=== PATIENT | female | born 1985 | race American Indian/Alaskan Native ===

== ENCOUNTER 2017-01-08 09:23 | Emergency (ER) | payer MEDICAID ==
[2017-01-08 09:55] LABS: Basophils % (Auto) 0.3 % (0.0-1.8); Eosinophils % (Auto) 2.8 % (0.0-4.3); Hematocrit 45.1 % (30.3-42.9); Hemoglobin 14.7 gm/dl (10.1-14.3); Mean Corpuscular HGB Conc 33 % (30-34); Mean Corpuscular Hemoglobin 28 pg (28-32); Mean Corpuscular Volume 87 fl (79-97); Platelet Count 244 K/mm3 (140-440); Red Blood Count 5.16 M/mm3 (3.65-5.03)
[2017-01-08 10:25] LABS: Alanine Aminotransferase 12 units/L (7-56); Albumin 4.7 g/dL (3.9-5); Albumin/Globulin Ratio 1.3 %; Alkaline Phosphatase 65 units/L (35-129); Anion Gap 15 mmol/L; BUN/Creatinine Ratio 8.75; Bilirubin,Total 0.5 mg/dL (0.1-1.2); Blood Urea Nitrogen 7 mg/dL (7-17); Calcium 8.9 mg/dL (8.4-10.2); Carbon Dioxide 25 mmol/L (22-30); Chloride 101.5 mmol/L (98-107); Glucose 87 mg/dL (65-100); Lipase 26 units/L (13-60); Potassium 3.8 mmol/L (3.6-5.0); Sodium 138 mmol/L (137-145); Total Protein 8.2 g/dL (6.3-8.2)
[2017-01-08 11:58] LABS: Bacteria,Urine 1+ /HPF (Negative); Bilirubin,Urine NEG (Negative); Blood,Urine NEG (Negative); Ketones,Urine TR mg/dL (Negative); Leukocyte Esterase,Urine MOD (Negative); Mucus,Urine 3+ /HPF; Nitrite,Urine NEG (Negative); Urobilinogen,Urine < 2.0 mg/dL (<2.0)
[2017-01-08 13:00] VITALS: BP 124/86
--- NOTE | 2017-01-08 13:33 | Emergency Department Report ---
HPI - General Chief Complaint: Abdominal Pain Time Seen by Provider: 01/08/17 12:45 - HPI HPI: This is a 31-year-old Afro-[place]ovenian female presents to the emergency department with the complaint of a 2 day history of left-sided abdominal pain with nausea, vomiting and diarrhea. She says this is an acute on chronic condition as it is been going on intermittently for the past 2 months. When asked why the patient is here, she says "I'm here for an ultrasound of my gallbladder." She says she has a history of gallstones and that "last year they wanted to do surgery to take it out but I had to go to work." She said that she followed up after that time and they "stones had resolved." She is not taken anything for symptoms prior to presentation. She denies any other past medical history. No recent travel or sick contacts at home. ED Past Medical Hx - Past Medical History Previous Medical History?: Yes Hx Hypertension: No Hx Congestive Heart Failure: No Hx Diabetes: No Hx Deep Vein Thrombosis: No Hx Renal Disease: No Hx Sickle Cell Disease: No Hx Seizures: No Hx Asthma: Yes (as child, "grew out of it") Hx COPD: No Hx HIV: No - Surgical History Past Surgical History?: Yes Additional Surgical History: Tonsillectomy - Social History Smoking Status: Never Smoker Substance Use Type: Alcohol, Non Opiate Pain - Medications Home Medications: Home Medications Medication Instructions Recorded Confirmed Last Taken Type HYDROcodone/APAP 5-325 [[place] 1 each PO Q6HR PRN #12 tablet 01/08/17 Unknown Rx 5/325] ED Review of Systems ROS: Stated complaint: N/V/ABD PAIN/DIARRHEA Other details as noted in HPI Comment: All other systems reviewed and negative Constitutional: denies: chills, fever Eyes: denies: eye pain, eye discharge, vision change ENT: denies: ear pain, throat pain Respiratory: denies: cough, shortness of breath, wheezing Cardiovascular: denies: chest pain, palpitations Gastrointestinal: abdominal pain, nausea, vomiting, diarrhea Genitourinary: denies: urgency, dysuria, discharge Musculoskeletal: denies: back pain, joint swelling, arthralgia Skin: denies: rash, lesions Neurological: denies: headache, weakness, paresthesias Physical Exam - Physical Exam Vital Signs: Vital Signs 01/08/17 01/08/17 09:27 12:59 Temperature 98.4 F 98.3 F Pulse Rate 72 84 Respiratory 18 16 Rate Blood Pressure 121/90 Blood Pressure 124/86 [Left] O2 Sat by Pulse 100 100 Oximetry Physical Exam: GENERAL: The patient is well-developed well-nourished. HEENT: Normocephalic. Atraumatic. Extraocular motions are intact. Patient has moist mucous membranes. Pupils equal reactive to light bilaterally. NECK: Supple. Trachea is midline. CHEST/LUNGS: Clear to auscultation. There is no respiratory distress noted. HEART/CARDIOVASCULAR: Regular. There is no tachycardia. There is no gallop rub or murmur. ABDOMEN: Abdomen is soft. There is some epigastric and left upper quadrant tenderness to palpation. No guarding rebound tenderness. No peritoneal signs. Patient has normal bowel sounds. There is no abdominal distention. SKIN: There is no rash. There is no edema. There is no diaphoresis. NEURO: The patient is awake, alert, and oriented. The patient is cooperative. The patient has no focal neurologic deficits. The patient has normal speech. Normal gait. MUSCULOSKELETAL: There is no tenderness or deformity. There is no limitation range of motion. There is no evidence of acute injury. ED Course Vital Signs 01/08/17 01/08/17 09:27 12:59 Temperature 98.4 F 98.3 F Pulse Rate 72 84 Respiratory 18 16 Rate Blood Pressure 121/90 Blood Pressure 124/86 [Left] O2 Sat by Pulse 100 100 Oximetry ED Medical Decision Making - Lab Data Result diagrams: 01/08/17 09:42 01/08/17 09:42 - Radiology Data Radiology results: report reviewed Abdominal x-ray was read by radiology as multiple air-fluid levels consistent with gastroenteritis or mild diffuse ileus but no acute abdominal process. Right upper quadrant abdominal ultrasound shows multiple gallstones but normal gallbladder wall and common bile duct size. - Medical Decision Making 31-year-old female presents to the emergency department with complaint of some left upper quadrant abdominal pain with nausea, vomiting and diarrhea and concern for her gallbladder with previous history of gallstones. Patient's labs and unremarkable including normal lipase, LFTs and bilirubin. There is no leukocytosis, electrolyte abnormalities or renal sufficiency. Patient had a abdominal ultrasound that shows some air-fluid levels and nonspecific bowel gas and was read by radiology as gastroenteritis versus a mild diffuse ileus but no acute intra-abdominal process. Right upper quadrant abdominal ultrasound shows multiple gallstones but no signs of cholecystitis as there is no abdominal wall thickening or enlargement of the common bile duct. - Differential Diagnosis cholelithiasis, cholecystitis, pancreatitis, hepatitis, gastroenteritis Critical Care Time: No Critical care attestation.: If time is entered above; I have spent that time in minutes in the direct care of this critically ill patient, excluding procedure time. ED Disposition Clinical Impression: Nausea and vomiting Qualifiers: Vomiting type: unspecified Vomiting Intractability: non-intractable Qualified Code(s): R11.2 - Nausea with vomiting, unspecified Cholelithiasis Qualifiers: Cholelithiasis location: gallbladder Cholecystitis presence: without cholecystitis Abdominal pain Qualifiers: Abdominal location: left upper quadrant Qualified Code(s): R10.12 - Left upper quadrant pain Disposition: DISCHARGED TO HOME OR SELFCARE Is pt being admited?: No Condition: Stable Instructions: Abdominal Pain (ED), Biliary Colic (ED), Acute Nausea and Vomiting (ED) Additional Instructions: Please follow-up with a primary care doctor in the next few days. I am also going to give you a referral for a surgeon to follow up regarding your gallbladder stones and recurrent pains in case you would like to look into an elective outpatient surgery to remove her gallbladder. Return to the emergency department with any worsening of your symptoms or any acute distress.You've been prescribed a medication that is sedating. Therefore this medication cannot be mixed with alcohol, or taken prior to driving, working, or being responsible for children. Prescriptions: HYDROcodone/APAP 5-325 [[place] 5/325] 1 each PO Q6HR PRN #12 tablet PRN Reason: Pain Referrals: PRIMARY MD PAULINE [Primary Care Provider] - 3-5 Days BEN MEANS MD [Staff Physician] - 3-5 Days Time of Disposition: 14:20
--- NOTE | 2017-01-08 13:37 | XRay Report ---
ABDOMEN, 2 VIEWS: History: Abdominal pain. Findings: Multiple small air-fluid levels are identified throughout the abdomen. No dilated bowel or free air is identified. No pathologic calcifications. Normal stool in the colon. The lung bases are clear. Impression: 1. Findings consistent with gastroenteritis or a mild diffuse ileus. No acute abdominal findings.
--- NOTE | 2017-01-08 14:02 | Ultrasound Report ---
Ultrasound of the right upper quadrant. Findings: The abdominal aorta and liver are normal. There are multiple gallstones. The wall of the gallbladder is not thickened. Common bile duct is normal in caliber at 3 mm. The right kidney is normal in size and configuration with no evidence of hydronephrosis. The head and proximal body of the pancreas appear normal; the tail of the pancreas is not well-visualized. Impression: Multiple gallstones.
== END 2017-01-08 14:38 | disposition home or self-care (01) ==
LOC: ED 09:23
DX: K80.20 Calculus of gallbladder without cholecystitis without obstruction (principal); R11.2 Nausea with vomiting, unspecified; R10.12 Left upper quadrant pain; J45.909 Unspecified asthma, uncomplicated
CPT/HCPCS: 36415; 74020; 76705; 80053; 81001; 81025; 83690; 85025

== ENCOUNTER 2018-05-04 16:19 | Inpatient (IN) | payer MEDICAID, OTHER ==
[2018-05-04] MEDS ORDERED: LACTATED RINGERS 1,000 ML ONE (17:06)
[2018-05-04] MEDS ORDERED: ePHEDrine SULFATE IV PRN ×2 (17:18→20:47)
[2018-05-04] MEDS ORDERED: NARCAN 0.4 MG/1 ML IV PRN ×3 (17:18→23:51)
[2018-05-04] MEDS ORDERED: BRETHINE SUB-Q PRN (17:18)
[2018-05-04] MEDS ORDERED: XYLOCAINE 2% INFILTRATI ONE (17:18)
[2018-05-04] MEDS ORDERED: MINERAL OIL PO PRN (17:18)
[2018-05-04] MEDS ORDERED: BRETHINE IVP PRN (17:18)
[2018-05-04] MEDS ORDERED: STADOL IV PRN (17:18)
[2018-05-04 17:38] LABS: Hematocrit 38.9 % (30.3-42.9); Hemoglobin 13.1 gm/dl (10.1-14.3); Mean Corpuscular HGB Conc 34 % (30-34); Mean Corpuscular Hemoglobin 29 pg (28-32); Mean Corpuscular Volume 87 fl (79-97); Platelet Count 194 K/mm3 (140-440); Red Blood Count 4.48 M/mm3 (3.65-5.03); Red Cell Distribution Width 13.8 % (13.2-15.2)
[2018-05-04] MEDS ORDERED: PITOCin/NS 20 UNIT/1000ML DRIP 20 UNITS/1,000 ML BAG IV SCH ×3 (18:00→23:45)
[2018-05-04] MEDS ORDERED: PITOCin/NS 30 UNIT/500ML 30 UNITS/500 ML BAG IV SCH (18:00)
[2018-05-04] MEDS ORDERED: LACTATED RINGERS 1,000 ML IV SCH ×2 (18:00→23:00)
--- NOTE | 2018-05-04 18:31 | History and Physical Report ---
History of Present Illness Date of examination: 05/04/18 Date of admission: 05/04/18 17:13 Chief complaint: Intense Labor Pains History of present illness: Limited care at [facility], treated for +Trichomonas. 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948 kg Method of Delivery: Vaginal Gestational age at delivery: 39 Medications and Allergies Allergies Allergy/AdvReac Type Severity Reaction Status Date / Time No Known Allergies Allergy Verified 07/12/15 03:10 Home Medications Medication Instructions Recorded Confirmed Last Taken Type HYDROcodone/APAP 5-325 [[place] 1 each PO Q6HR PRN #12 tablet 01/08/17 Unknown Rx 5/325] Ondansetron [Zofran Odt] 4 mg PO Q8H PRN #10 tab.rapdis 01/08/17 Unknown Rx Active Meds: Active Medications Butorphanol Tartrate (Stadol) 2 mg IV Q2H PRN PRN Reason: Pain , Severe (7-10) Last Admin: 05/04/18 17:45 Dose: 2 mg Ephedrine Sulfate (Ephedrine Sulfate) 10 mg IV Q2M PRN PRN Reason: Hypotension Lactated Ringer's (Lactated Ringers) 1,000 mls @ 125 mls/hr IV DIRECT NANCY Last Admin: 05/04/18 17:45 Dose: 999 mls/hr Oxytocin/Sodium Chloride (Pitocin/Ns 20 Unit/1000ml Drip) 20 units in 1,000 mls @ 125 mls/hr IV DIRECT NANCY Oxytocin/Sodium Chloride (Pitocin/Ns 30 Unit/500ml) 30 units in 500 mls @ 2 mls /hr IV TITR NANCY; Protocol Mineral Oil (Mineral Oil) 30 ml PO QHS PRN PRN Reason: Constipation Naloxone HCl (Narcan 0.4 Mg/1 Ml) 0.1 mg IV Q2MIN PRN PRN Reason: Res Rate </= 8 or 02 SAT < 92% Terbutaline Sulfate (Brethine) 0.25 mg SUB-Q ONCE PRN PRN Reason: Hyperstimulation/Hypertonicity Terbutaline Sulfate (Brethine) 0.25 mg IVP ONCE PRN PRN Reason: Hyperstimulation/Hypertonicity Review of Systems All systems: negative - Vital Signs Vital signs: Vital Signs Pulse BP Pulse Ox 74 132/89 99 05/04/18 16:46 05/04/18 16:46 05/04/18 16:46 Temp Pulse Resp BP Pulse Ox 68 20 121/78 100 05/04/18 18:08 05/04/18 17:45 05/04/18 18:08 05/04/18 16:51 - Physical Exam Breasts: Positive: normal Cardiovascular: Regular rate Lungs: Positive: Clear to auscultation, Normal air movement Abdomen: Positive: normal appearance, soft, normal bowel sounds Genitourinary (Female): Positive: normal external genitalia, normal perenium Vagina: Positive: normal moisture Uterus: Positive: normal size Anus/Rectum: Positive: normal perianal skin - Obstetrical FHR: category 1 Uterine Contraction Monitor Mode: External Cervical Dilatation: 7 (AROM of a large amount of clear fluid @ 1515) Cervical Effacement Percentage: 80 station: -2 Uterine Contraction Pattern: Regular Uterine Tone Measurement Phase: Resting Uterine Contraction Intensity: Moderate Results Result Diagrams: 05/04/18 17:00 All other labs normal. Assessment and Plan A: IUP @ 38 5/7 Weeks Category I Tracing Previous Active Labor GBS Unknown limited Care P: Admit to L&D per Routine Orders AROm Dr. Olmedo [address] [place] [address]) aware the in active labor GBS Prophylaxis
[2018-05-04] MEDS ORDERED: POLYCILLIN/NS 2 GM/100 ML 2 GM/100 ML BAG IV ONE (18:35)
[2018-05-04] MEDS ORDERED: NEO SYNEPHRINE/NS Syringe(OR USE) IV ONE (20:37)
[2018-05-04] MEDS ORDERED: NARCAN 2 MG/2 ML IV PRN (20:47)
--- NOTE | 2018-05-04 20:49 | Anesthesia Consultation ---
Anesthesia Consult and Med Hx Date of service: 05/04/18 - Airway Anesthetic Teeth Evaluation: Good ROM Head & Neck: Adequate Mental/Hyoid Distance: Adequate Mallampati Class: Class II Intubation Access Assessment: Probably Good - Pulmonary Exam CTA: Yes - Cardiac Exam Cardiac Exam: RRR - Pre-Operative Health Status ASA Pre-Surgery Classification: ASA2 Proposed Anesthetic Plan: Epidural, Spinal - Pulmonary Hx Smoking: No Hx Asthma: No COPD: No Hx Pneumonia: No - Cardiovascular System Hx Hypertension: No - Central Nervous System Hx Seizures: No Hx Psychiatric Problems: No - Endocrine Hx Renal Disease: No Hx End Stage Renal Disease: No Hx Hypothyroidism: No Hx Hyperthyroidism: No - Hematic Hx Anemia: No Hx Sickle Cell Disease: No - Other Systems Hx Alcohol Use: No
--- NOTE | 2018-05-04 20:56 | Progress Note ---
Assessment and Plan A: IUP @ 38 5/7 Weeks Category I Tracing Previous Protracted Labor GBS Unknown limited Care P: Internals x 2 placed Pitocin Augmentation Multiple Maternal Position Changes GBS Prophylaxis Transfer of Care to Dr. Olmedo due to protracted labor in attempt Subjective - Subjective Date of service: 05/04/18 Interval history: Limited care at [facility], treated for +Trichomonas. Patient reports: movement normal, contractions (Resting well under epidural) Objective - Vital Signs Vital Signs: Vital Signs - 12hr 05/04/18 05/04/18 05/04/18 16:46 16:51 17:45 Temperature Pulse Rate 80 80 Respiratory 20 Rate Blood Pressure 132/89 O2 Sat by Pulse 99 100 Oximetry 05/04/18 05/04/18 05/04/18 18:08 18:39 18:59 Temperature 98.4 F Pulse Rate 68 73 Respiratory 20 Rate Blood Pressure 121/78 140/82 O2 Sat by Pulse Oximetry 05/04/18 05/04/18 05/04/18 19:30 19:39 19:46 Temperature Pulse Rate 73 75 75 Respiratory Rate Blood Pressure 163/92 166/91 O2 Sat by Pulse 99 Oximetry 05/04/18 05/04/18 05/04/18 19:49 19:56 19:58 Temperature Pulse Rate 81 78 80 Respiratory Rate Blood Pressure 135/101 O2 Sat by Pulse 92 99 Oximetry 05/04/18 05/04/18 05/04/18 20:00 20:02 20:03 Temperature Pulse Rate 67 71 66 Respiratory Rate Blood Pressure 142/64 152/68 O2 Sat by Pulse 94 Oximetry 05/04/18 05/04/18 05/04/18 20:04 20:06 20:08 Temperature Pulse Rate 73 64 68 Respiratory Rate Blood Pressure 133/78 119/64 119/74 O2 Sat by Pulse 90 Oximetry 05/04/18 05/04/18 05/04/18 20:10 20:12 20:14 Temperature Pulse Rate 72 69 101 H Respiratory Rate Blood Pressure 120/79 118/75 122/92 O2 Sat by Pulse 100 Oximetry 05/04/18 05/04/18 05/04/18 20:16 20:17 20:26 Temperature Pulse Rate 95 H 86 69 Respiratory Rate Blood Pressure 140/58 97/52 O2 Sat by Pulse 83 L 98 Oximetry 05/04/18 05/04/18 05/04/18 20:28 20:30 20:32 Temperature Pulse Rate 76 73 68 Respiratory Rate Blood Pressure 97/54 96/60 90/57 O2 Sat by Pulse Oximetry 05/04/18 05/04/18 05/04/18 20:34 20:36 20:38 Temperature Pulse Rate 70 70 73 Respiratory Rate Blood Pressure 88/51 92/51 77/39 O2 Sat by Pulse Oximetry 05/04/18 05/04/18 05/04/18 20:42 20:48 20:49 Temperature Pulse Rate 84 50 L 86 Respiratory Rate Blood Pressure O2 Sat by Pulse 99 92 99 Oximetry 05/04/18 20:54 Temperature Pulse Rate 117 H Respiratory Rate Blood Pressure 185/113 O2 Sat by Pulse 100 Oximetry - Exam Breasts: normal Cardiovascular: Regular rate Abdomen: Present: normal appearance, normal bowel sounds FHR: category 1 Uterine Contraction Monitor Mode: Internal Cervical Dilatation: 7 Cervical Effacement Percentage: 80 station: -2 Uterine Contraction Pattern: Regular Uterine Tone Measurement Phase: Resting Uterine Contraction Intensity: Moderate Extremities: normal - Labs Labs: Laboratory Results - last 24 hr 05/04/18 05/04/18 05/04/18 17:00 17:00 17:00 WBC 7.5 RBC 4.48 Hgb 13.1 Hct 38.9 MCV 87 MCH 29 MCHC 34 RDW 13.8 Plt Count 194 Hep Bs Antigen Hepatitis C Antibody Non-reactive HIV 1&2 Antibody Rapid HIV P24 Antigen Blood Type B POSITIVE Antibody Screen Negative 05/04/18 05/04/18 17:00 17:00 WBC RBC Hgb Hct MCV MCH MCHC RDW Plt Count Hep Bs Antigen Non-reactive Hepatitis C Antibody HIV 1&2 Antibody Rapid Non react HIV P24 Antigen Non react Blood Type Antibody Screen
[2018-05-04] MEDS ORDERED: fentaNYL-BUPIV 2 MCG/ML-0.125% 200 MCG/100 ML BAG EPIDURAL SCH (21:00)
[2018-05-04] MEDS ORDERED: AMPICILLIN/NS 1 GM/50 ML 1 GM/50 ML BAG IV SCH (22:00)
[2018-05-04] MEDS ORDERED: BICITRA PO ONE (22:02)
[2018-05-04] MEDS ORDERED: REGLAN IV ONE (22:02)
[2018-05-04] MEDS ORDERED: PEPCID IV ONE ×2 (22:02→22:11)
[2018-05-04] MEDS ORDERED: XYLOCAINE MPF 2% ONE ×3 (22:10→23:05)
[2018-05-04] MEDS ORDERED: BICITRA ONE (22:11)
[2018-05-04] MEDS ORDERED: ANCEF/STERILE WATER 2 GM/20 ML 2 GM/20 ML SYRINGE IV ONE (22:12)
[2018-05-04] MEDS ORDERED: WATER FOR IRRIG STERILE IR ONE (22:40)
[2018-05-04] MEDS ORDERED: NACL 0.9% IR ONE (22:40)
[2018-05-04] MEDS ORDERED: ANCEF/STERILE WATER 2 GM/20 ML 2 GM/20 ML SYRINGE IV NR (23:00)
[2018-05-04] MEDS ORDERED: SUBLIMAZE ONE (23:07)
[2018-05-04] MEDS ORDERED: VERSED ONE (23:09)
--- NOTE | 2018-05-04 23:30 | Operative Report ---
Operative Report Operative Report: Date of procedure: 05/04/2018 Pre-operative diagnosis: 1. Intrauterine at 36-5/7 weeks in labor 2. Previous 3. GBS unknown 4. Failure to progress Post-operative diagnosis: Same Procedure name(s): Repeat low transverse section Surgeon: Dimas Olmedo MD Envelope Sealer Operator: None Anesthesia: Epidural anesthesia by Dr. Miller EBL: 1000 mL's Findings: A 3444 g female infant Apgars 8 at 1 minute 9 at 5 minutes. Lower uterine segment adhesions. Clear amniotic fluid. Normal uterus. Normal tubes and ovaries bilaterally. Procedure: After the patient was prepped and draped in usual sterile fashion, and after satisfactory level of epidural anesthesia was obtained, the skin knife was used to make a transverse skin incision through the previous skin scar. The incision was excised down to layer of the fascia, which was nicked in the midline and extended laterally using the Bovie cautery. The rectus muscles were dissected off the rectus fascia both superiorly and inferiorly. The rectus bellies in the midline, and the peritoneum was entered under direct visualization. The peritoneal incision was extended superiorly and inferiorly. A bladder flap was created and the bladder blade was then placed. The uterus was scored in a curvilinear linear fashion, entered in the midline revealing clear amniotic fluid. The infant's head was delivered onto the surgical field, and the oropharynx and nasopharynx were bulb suctioned. The rest of the 's body was delivered, cord was doubly clamped and cut and the infant was handed to the waiting respiratory team. The placenta was manually removed from the uterus, and the uterus removed from its normal anatomical position. After gentle uterine lavage, the incision was inspected and found to be without extensions. It was then closed in 2 layers using 0 Vicryl suture in a running interlocking fashion, the second layer imbricating the first. After good hemostasis was achieved, copious amounts or irrigation was performed, and the gutters were suctioned free of blood and blood clots. The Tisseel sealant was sprayed across the uterine incision. The uterus was then returned to its normal anatomical position, and after excellent hemostasis assured, the peritoneum was reapproximated using 3-0 Vicryl suture in a running interlocking fashion, and then the rectus muscles were reapproximated using 3-0 Vicryl suture in a [id number] configuration. The fascia was then reapproximated using 0 Vicryl suture in running interlocking fashion. The subcutaneous layer was made hemostatic using Bovie cautery, the Tisseel sealant was sprayed across the fascial incision and the skin edges reapproximated using 4-0 Vicryl suture in a subcuticular fashion. Patient tolerated the procedure well was transported to recovery in stable condition.
[2018-05-04] MEDS ORDERED: TYLENOL PO PRN (23:37)
[2018-05-04] MEDS ORDERED: TUCKS PAD TP PRN (23:37)
[2018-05-04] MEDS ORDERED: TORADOL IV PRN (23:37)
[2018-05-04] MEDS ORDERED: LANSINOH TP PRN (23:37)
[2018-05-04] MEDS ORDERED: ZOFRAN IV PRN ×2 (23:37→23:51)
[2018-05-04] MEDS ORDERED: MYLICON PO PRN (23:37)
[2018-05-04] MEDS ORDERED: PHENERGAN PR PRN ×2 (23:37→23:51)
[2018-05-04] MEDS ORDERED: SODIUM CHLORIDE FLUSH SYRINGE 10 ML IV NR ×2 (23:45)
[2018-05-04] MEDS ORDERED: D5LR 1,000 ML IV SCH (23:45)
[2018-05-04] MEDS ORDERED: ANCEF/NS 1 GM/50 ML 1 GM/50 ML BAG IV SCH (23:45)
--- NOTE | 2018-05-04 23:50 | Anesthesia Day of Surgery ---
Anesthesia Day of Surgery - Day of Surgery Patient Examined: Yes Patient H&P Reviewed: Yes Patient is NPO: Yes
[2018-05-04] MEDS ORDERED: DILAUDID IV PRN (23:51)
[2018-05-04] MEDS ORDERED: PHENERGAN PO PRN (23:51)
--- NOTE | 2018-05-04 23:51 | Post Anesthesia Evaluation ---
- Post Anesthesia Evaluation Patient Participated: Yes Airway Patent: Yes Stable Respiratory Function: Yes Nausea/Vomiting: No Temp > 96.8F: Yes Pain Manageable: Yes Adequeate Hydration: Yes Anesthesia Complications: No Block Receding Appropriately: Yes
[2018-05-05] MEDS: DILAUDID IV PRN ×3 (00:41→05:37)
[2018-05-05] MEDS ORDERED: TORADOL IV ONE (01:00)
[2018-05-05] MEDS: ceFAZolin 1 GM in NACL 0.9% 20 ML IV SCH ×2 (05:27→14:18)
[2018-05-05] MEDS ORDERED: BOOSTRIX IM ONE (06:00)
[2018-05-05] MEDS ORDERED: M-M-R II VACCINE SUB-Q ONE (06:00)
--- NOTE | 2018-05-05 09:54 | Progress Note ---
Assessment and Plan A: POD #1 s/p Repeat c/s Stable Pain well controlled P: Routine PO/PP care Advance diet as tolerated D/c kent catheter and IV pain med Encourage ambulation in room Subjective - Subjective Date of service: 05/05/18 Principal diagnosis: s/p R c/s Patient reports: appetite normal, voiding normally, pain well controlled, flatus , ambulating normally, no bowel movement : doing well, bottle feeding Objective - Vital Signs Latest vital signs: Vital Signs Temp Pulse Resp BP BP Pulse Ox 05/05/18 08:00 98.6 F 83 111/68 05/05/18 05:40 98.0 F 82 20 122/78 95 05/05/18 02:06 98.8 F 79 20 136/79 96 05/05/18 01:19 18 05/05/18 01:05 85 17 123/78 98 05/05/18 00:49 17 05/05/18 00:45 87 11 L 133/79 99 05/05/18 00:41 15 05/05/18 00:25 82 23 139/84 99 05/05/18 00:10 80 17 145/83 99 05/05/18 00:05 83 18 143/89 98 05/05/18 00:00 83 18 135/80 98 05/04/18 23:47 98.3 F 83 18 135/83 98 05/04/18 22:23 107 H 99 05/04/18 22:18 91 H 97 05/04/18 22:13 84 98 05/04/18 22:10 87 87 05/04/18 22:08 93 H 98 05/04/18 22:03 85 99 05/04/18 21:58 100 H 97 05/04/18 21:53 86 98 05/04/18 21:48 78 99 05/04/18 21:43 95 H 100 05/04/18 21:38 83 100 05/04/18 21:33 78 100 05/04/18 21:28 77 99 05/04/18 21:23 95 H 98 05/04/18 21:22 95 H 91 05/04/18 21:16 109 H 89 05/04/18 21:14 103 H 99 05/04/18 21:09 79 100 05/04/18 21:06 76 108/56 05/04/18 21:04 103 H 100 06/04/18 21:02 129/89 05/04/18 20:59 101 H 100 05/04/18 20:56 118 H 74 L 05/04/18 20:54 117 H 185/113 100 05/04/18 20:49 86 99 05/04/18 20:48 50 L 92 05/04/18 20:42 84 99 05/04/18 20:38 73 77/39 05/04/18 20:36 70 92/51 05/04/18 20:34 70 88/51 05/04/18 20:32 68 90/57 05/04/18 20:30 73 96/60 05/04/18 20:28 76 97/54 05/04/18 20:26 69 97/52 05/04/18 20:17 86 98 05/04/18 20:16 95 H 140/58 83 L 05/04/18 20:14 101 H 122/92 05/04/18 20:12 69 118/75 100 05/04/18 20:10 72 120/79 05/04/18 20:08 68 119/74 90 05/04/18 20:06 64 119/64 05/04/18 20:04 73 133/78 05/04/18 20:03 66 94 05/04/18 20:02 71 152/68 05/04/18 20:00 67 142/64 05/04/18 19:58 80 135/101 05/04/18 19:56 78 99 05/04/18 19:49 81 92 05/04/18 19:46 75 99 05/04/18 19:39 75 166/91 05/04/18 19:30 73 163/92 05/04/18 18:59 98.4 F 20 05/04/18 18:39 73 140/82 05/04/18 18:08 68 121/78 05/04/18 17:45 20 05/04/18 16:51 80 100 05/04/18 16:46 80 132/89 99 Intake and Output 05/04/18 05/05/18 05/05/18 23:59 07:59 15:59 Intake Total 1300 Output Total 200 700 Balance 1100 -700 Intake: IV 1300 Output: Urine 200 700 Indwelling Catheter 500 Uretheral (Kent) 200 200 Other: Total, Output Amount 500 Weight 96.162 kg Estimated Blood Loss 1,000 - Exam Breasts: Present: normal Cardiovascular: Present: Regular rate, Normal S1, Normal S2 Lungs: Present: Clear to auscultation, Normal air movement Abdomen: Present: normal appearance, soft, normal bowel sounds. Absent: distention Vulva: both: normal Uterus: Present: firm, fundal height at umbilicus Extremities: Present: normal Deep Tendon Reflex Grade: Normal +2 Incision: Present: normal, dry, intact, dressed (pressure dressing)
[2018-05-05] MEDS: FEOSOL PO SCH (10:12)
[2018-05-05] MEDS: PRENATAL VITAMIN PO SCH (10:12)
[2018-05-05 11:47] LABS: Hematocrit 32.3 % (30.3-42.9); Hemoglobin 11.3 gm/dl (10.1-14.3)
[2018-05-05] MEDS: PERCOCET 5/325 PO PRN ×2 (14:17→23:13)
[2018-05-05] MEDS: MOTRIN PO PRN (18:37)
[2018-05-05] MEDS: NORCO 5/325 PO PRN (18:38)
[2018-05-05] MEDS: MILK OF MAGNESIA PO PRN (23:19)
[2018-05-06] MEDS: NORCO 5/325 PO PRN ×3 (01:53→15:27)
[2018-05-06] MEDS: MOTRIN PO PRN ×2 (01:53→09:03)
[2018-05-06] MEDS: PRENATAL VITAMIN PO SCH (09:05)
[2018-05-06] MEDS: FEOSOL PO SCH (09:05)
[2018-05-06] MEDS: MILK OF MAGNESIA PO PRN ×2 (09:07→22:11)
--- NOTE | 2018-05-06 09:25 | Progress Note ---
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 in 2 weeks for incision check/ control consult Subjective - Subjective Date of service: 05/06/18 Principal diagnosis: s/p Repeat LTCS Patient reports: appetite normal, voiding normally, pain well controlled, ambulating normally, no flatus, no bowel movement [place]: doing well, other (breast and bottle feeding) Objective - Vital Signs Latest vital signs: Vital Signs Temp Pulse Resp BP BP Pulse Ox 05/06/18 08:13 97.8 F 84 18 121/82 97 05/06/18 00:30 98.6 F 68 18 118/72 05/05/18 16:30 98.0 F 78 18 115/77 99 Intake and Output 05/05/18 05/06/18 05/06/18 23:59 07:59 15:59 Other: Intake, Other Source Saline Solution # Voids Indwelling Catheter 2 - Exam Vulva: both: normal Uterus: Present: normal, firm, fundal height below umbilicus Extremities: Present: normal Incision: Present: normal, dry, intact
--- NOTE | 2018-05-06 09:28 | Discharge Summary ---
Providers - Providers Date of Admission: 05/04/18 17:13 Date of discharge: 05/07/18 Attending physician: KAISER FARFAN MD Primary care physician: KAISER FARFAN MD Hospitalization Reason for admission: active labor, IUP at term Delivery: Procedure: repeat low transverse Episiotomy: none Laceration: none Incision: normal, dry, skin (small desquamation on right side away from incision site - treated with Bacitracin ointment BID), intact Other procedures: none complications: none Discharge diagnosis: IUP at term delivered baby: female Hospital course: Uncomplicated Condition at discharge: Stable Disposition: - TO HOME OR SELFCARE - Discharge Diagnoses (1) S/P repeat low transverse Status: Acute Plan - Discharge Medications Prescriptions: Ferrous Sulfate [Feosol 325 MG tab] 325 mg PO BID #60 tablet HYDROcodone/APAP 5-325 [[place] 5/325] 1 each PO Q6HR PRN #30 tablet PRN Reason: Pain Ibuprofen [Motrin] 800 mg PO Q8HR PRN #30 tablet PRN Reason: Moder Pain Unrelieved By [place] Vit Calc,Iron,Folic [ Vitamins] 1 each PO DAILY #30 tablet - Provider Discharge Summary Activity: routine, no sex for 6 weeks, no heavy lifting 4 weeks, no strenuous exercise Diet: routine Instructions: routine Additional instructions: [] Smoking cessation referral if applicable(refer to patient education folder for contact #) [] Refer to [facility]'s [facility] Booklet Call your doctor immediately for: * Fever > 100.5 * Heavy vaginal bleeding ( >1 pad per hour) * Severe persistent headache * Shortness of breath * Reddened, hot, painful area to leg or breast * Drainage or odor from incision. * Keep incision clean and dry at all times and follow doctor's instructions regarding bathing/showering - Follow up plan Follow up: KAISER FARFAN MD [Primary Care Provider] - 14 Days (Follow up at [facility] in 2 weeks for incision check and control consult)
[2018-05-06] MEDS ORDERED: POLYSPORIN TP SCH (11:00)
[2018-05-06] MEDS: PERCOCET 5/325 PO PRN (22:11)
[2018-05-07 01:03] VITALS: BP 136/44
[2018-05-07] MEDS: FEOSOL PO SCH (08:28)
[2018-05-07] MEDS: PERCOCET 5/325 PO PRN ×2 (08:28→15:20)
[2018-05-07] MEDS: PRENATAL VITAMIN PO SCH (08:29)
[2018-05-07] MEDS: MOTRIN PO PRN (15:20)
== END 2018-05-07 17:25 | disposition home or self-care (01) | DRG 766 ==
LOC: TRG 16:19 → LD 17:13 → APU 22:22 → OB 05-05 01:18
PROVIDERS: ADMIT Obstetrics & Gynecology; ATTEND Obstetrics & Gynecology
PROC: 10D00Z1 Extraction of Products of Conception, Low, Open Approach (ICD-10-PCS; principal; 2018-05-04)
PROC: 10907ZC Drainage of Amniotic Fluid, Therapeutic from Products of Conception, Via Natural or Artificial Opening (ICD-10-PCS; 2018-05-04)
PROC: 3E0234Z Introduction of Serum, Toxoid and Vaccine into Muscle, Percutaneous Approach (ICD-10-PCS; 2018-05-05)
DX: O34.211 Maternal care for low transverse scar from previous cesarean delivery (principal); O99.52 Diseases of the respiratory system complicating childbirth; O99.284 Endocrine, nutritional and metabolic diseases complicating childbirth; E07.9 Disorder of thyroid, unspecified; J45.909 Unspecified asthma, uncomplicated; O99.334 Smoking (tobacco) complicating childbirth; F17.200 Nicotine dependence, unspecified, uncomplicated; Z79.899 Other long term (current) drug therapy; O09.33 Supervision of pregnancy with insufficient antenatal care, third trimester; Z3A.36 36 weeks gestation of pregnancy; Z37.0 Single live birth; Z23 Encounter for immunization; Z82.49 Family history of ischemic heart disease and other diseases of the circulatory system
CPT/HCPCS: 36415; 85014; 85018; 85027; 86592; 86706; 86803; 86850; 86900; 86901; 87806; 99211; A6250; C9250; G0463; J0290; J0595; J0690; J1170; J1885; J2250; J2370; J2590; J2765; J3010; J7120; J7121